=== PATIENT | female | born 1990 ===

== ENCOUNTER 2024-01-18 14:58 | Emergency (ER) | payer SELFPAY ==
[2024-01-18 15:10] VITALS: BP 119/71; PULSE 74; RESP 16; O2SAT 100
--- NOTE | 2024-01-18 16:04 | ED_ITS ---
HPI - General Adult 2 General: Chief complaint: General Medical Stated complaint: swelling in left breast Time Seen by Provider: 01/18/24 15:37 Source: patient Mode of arrival: ambulatory Limitations: no limitations History of Present Illness: Patient is a 34-year-old [place] Citizen-speaking female here with presumably her significant other for complaints of left breast pain. Patient states she has began noticing pain in the lateral left breast over the past several days. She has not noticed any redness or warmth to the breast. She has not noticed any nipple discharge or drainage. History is provided with the help of a phone pantograph transferrer. She has no known history of family breast cancer. She feels like pain radiates into her left axillary region. She is not having any chest pain, shortness of breath, difficulty breathing. Onset (ago): day(s) Location: chest (L breast) Radiation: non-radiation Severity: moderate Pain Consistency: constant Relieving factors: none Exacerbating factors: other (ROM of L shoulder, palpation of breast) Associated symptoms: Reports no associated symptoms; Deny chest pain, dyspnea or malaise Treatments prior to arrival: none Review of Systems 2 Const: Denies: fever(s), chills, body aches, fatigue or malaise Card: Denies: chest pain Resp: Denies: dyspnea Musc: Denies: back pain Skin/Breast: Reports: breast tenderness, breast pain and other (L breast pain); Denies: nipple discharge Physical Exam 2 Const: COMMON NORMALS: no acute distress, average body habitus, patient oriented x3, no limitations, healthy appearing, alert and well nourished Chest: Breast/axilla inspection: No skin changes BREAST/AXILLA PALPATION: Y es no axillary lymphadenopathy NIPPLE/AREOLA: Yes nipples/areola normal Chest images (female): 1. TTP; no obvious masses palpated; does have some fibrous changes; no overlying erythema/warmth/skin dimpling; no nipple discharge; no obvious axillary lymphadenopathy Resp: COMMON NORMALS: normal respiratory effort and clear to auscultation bilaterally AUSCULTATION: clear to auscultation bilaterally Cardio: COMMON NORMALS: regular rate and regular rhythm RATE: regular rate RHYTHM: regular rhythm Neuro: COMMON NORMALS: patient oriented x3 SENSORIUM/ORIENTATION: Yes alert Course 2 Vital Signs: Vital signs: Vital Signs Pulse Rate 74 01/18/24 15:10 Respiratory Rate 16 01/18/24 15:10 Blood Pressure 119/71 01/18/24 15:10 Pulse Oximetry 100 01/18/24 15:10 Oxygen Delivery Me thod Room Air 01/18/24 15:10 MDM - General Adult Medical Decision Making At this time I would recommend follow-up with primary care or [facility] for further evaluation into the need for a possible mammogram. I have no concerns for infection at this time so ultrasound I feel would be of minimal yield. I will have case management set her up with an appointment for one of these so they can determine further need. I do not have any suspicion for any acute emergency for her discomfort. No radiology studies performed this visit Discharge Plan Discharge Patient Disposition: Home Clinical Impression: Pain of left breast Condition: Stable Discharge Orders: Discharge ED (Routine); Ordered 01/18/24 Ordered By: Kayleen Reynolds Activity Restrictions/Additional Instructions: As we discussed I will place a case management referral to get you set up with a primary care provider or our [facility] so they can evaluate you further for your left breast pain in order further imaging/possible mammogram if needed. Print Language: [place] Citizen Coding Level of Care Code ED Screen Tender for Abhi Johnson
--- NOTE | 2024-01-21 08:13 | DCPLANNER ---
Message sent to [facility] for [facility]
== END 2024-01-18 16:22 | disposition home or self-care (01) ==
PROVIDERS: Emergency Provider Physician Assistant
DX: N64.4 Mastodynia (principal)
CPT/HCPCS: 99281